=== PATIENT | female | born 1990 | race Caucasian/White ===

== ENCOUNTER 2018-04-27 12:44 | Emergency (ER) | payer BC, MEDICAID ==
[~2018-04-27] VITALS: Ht 165.1 cm; Wt 50.0 kg
[2018-04-27] MEDS ORDERED: ONDANSETRON 2MG/ML, 2ML IVPush ONE (14:00)
[2018-04-27] MEDS ORDERED: ONDANSETRON 2MG/ML, 2ML ONE (14:42)
[2018-04-27] MEDS ORDERED: MORPHINE SULFATE 4 MG/ML, 1ML ONE ×2 (14:42→16:40)
[2018-04-27] MEDS: MORPHINE SULFATE 4 MG/ML, 1ML IVPush PRN ×2 (15:04→16:42)
[2018-04-27] MEDS ORDERED: NICOTINE 14MG/24 HR PATCH.TD24 ONE (15:21)
[2018-04-27 15:49] VITALS: BP 92/56
[2018-04-27 18:39] LABS: CULTURE INDICATED? YES; MICROSCOPIC INDICATED
[2018-04-27] MEDS ORDERED: NITROFURANTOIN (MACROBID) 100 MG CAPSULE ONE (18:46)
[2018-04-27] MEDS ORDERED: NITROFURANTOIN (MACROBID) 100 MG CAPSULE PO ONE (19:00)
== END 2018-04-27 19:06 | disposition home or self-care (01) ==
LOC: EDUNIT# 12:44 → ED 18:32
DX: S82.52XA Displaced fracture of medial malleolus of left tibia, initial encounter for closed fracture (principal); F17.200 Nicotine dependence, unspecified, uncomplicated; Z88.1 Allergy status to other antibiotic agents; W01.0XXA Fall on same level from slipping, tripping and stumbling without subsequent striking against object, initial encounter; Y93.89 Activity, other specified; Y92.89 Other specified places as the place of occurrence of the external cause; Y99.8 Other external cause status
CPT/HCPCS: 29515; 73610; 73700; 81001; 87077; 87086; 87186; 96374; 96375; 96376; 99284; J2405

== ENCOUNTER 2018-05-09 08:18 | Day surgery (SDC) | payer MEDICAID ==
[~2018-05-09] VITALS: Ht 165.1 cm; Wt 53.9 kg
[2018-05-09] MEDS ORDERED: FENTANYL PF 100 MCG/2ML ONE (08:31)
[2018-05-09] MEDS ORDERED: MIDAZOLAM 1 MG/ML, 2ML ONE (08:32)
[2018-05-09] MEDS ORDERED: GABAPENTIN 300 MG CAPSULE PO STA (08:37)
[2018-05-09] MEDS ORDERED: LACTATED RINGERS 1,000 ML IV SCH (08:44)
[2018-05-09] MEDS ORDERED: HYDR-3237 PO (08:51)
[2018-05-09 08:55] VITALS: BP 103/63
[2018-05-09] MEDS ORDERED: ONDANSETRON ODT 8 MG PO ONE (09:00)
[2018-05-09] MEDS ORDERED: ACETAMINOPHEN 500 MG TABLET PO ONE (09:00)
[2018-05-09] MEDS ORDERED: PLEASE ENTER HEIGHT AND WEIGHT MC SCH (09:00)
[2018-05-09] MEDS ORDERED: SCOPOLAMINE PATCH, 1.5MG PATCH.TD72 TD ONE (09:00)
[2018-05-09] MEDS ORDERED: DIAZEPAM 5 MG TABLET PO ONE (09:00)
[2018-05-09 09:13] LABS: HCG UR SG 1.019 (1.003-1.030)
[2018-05-09] MEDS ORDERED: BUPIVACAINE/PF-EPI 0.5% 1:200K ONE (09:16)
[2018-05-09] MEDS ORDERED: PROMETHAZINE 25 MG/ML, 1ML IV PRN (10:00)
[2018-05-09] MEDS ORDERED: ALBUTEROL/IPRATROPIUM 2.5MG/0.5MG, 3 ML NPPB PRN (10:00)
[2018-05-09] MEDS ORDERED: LORazepam 2 MG/ML, 1ML IVPush PRN (10:00)
[2018-05-09] MEDS ORDERED: ONDANSETRON 2MG/ML, 2ML IV PRN (10:00)
[2018-05-09] MEDS ORDERED: MEPERIDINE/PF 25MG/0.5ML IVPush PRN (10:00)
[2018-05-09] MEDS ORDERED: HYDROmorphone 2 MG/ML, 1ML IVPush PRN (10:00)
[2018-05-09] MEDS ORDERED: MIDAZOLAM 1 MG/ML, 2ML IV PRN (10:00)
[2018-05-09] MEDS ORDERED: FENTANYL PF 100 MCG/2ML IV PRN (10:00)
[2018-05-09] MEDS ORDERED: OXYcodone 5 MG/5 ML ORAL.SOL UDC PO PRN (10:00)
[2018-05-09] MEDS ORDERED: CEFAZOLIN 1,000 MG ONE (10:24)
[2018-05-09] MEDS ORDERED: DEXAMETHASONE 4 MG/ML, 1ML ONE (10:24)
[2018-05-09] MEDS ORDERED: PROPOFOL 10 MG/ML, 20ML ONE (10:24)
[2018-05-09] MEDS ORDERED: BUPIVACAINE/PF 0.5% ONE (10:24)
[2018-05-09] MEDS ORDERED: KETOROLAC 30 MG/1 ML ONE (11:43)
[2018-05-09] MEDS ORDERED: KETOROLAC 30 MG/1 ML IVPush ONE (12:00)
== END 2018-05-09 13:20 | disposition home or self-care (01) ==
LOC: OUT 08:18
PROVIDERS: ATTEND Orthopaedic Surgery
DX: S82.52XA Displaced fracture of medial malleolus of left tibia, initial encounter for closed fracture (principal); W19.XXXA Unspecified fall, initial encounter; Y93.89 Activity, other specified; Y92.89 Other specified places as the place of occurrence of the external cause; Y99.8 Other external cause status; Z88.1 Allergy status to other antibiotic agents
CPT/HCPCS: 27766; 64445; 64447; 73610; 76000; 81025; C1713; J0690; J1100; J1885; J2250; J2704; J3010; J3490; J7120; Q0162